=== PATIENT | male | born 1965 | race Caucasian/White ===

== ENCOUNTER 2017-04-25 14:00 | Inpatient (IN) | payer OTHER ==
[~2017-04-25] VITALS: Ht 182.9 cm; Wt 83.9 kg
--- NOTE | ~2017-04-25 | PN ---
Unit #: [id number] #: [id number] Patient: TOBIAS STATON [id number] [facility] [address] [place] [address] [id number] MR#: [id number] NAME: TOBIAS STATON ROOM: [facility] Age: 51 Sex: M Admission Date: 04/25/2017 : 1965 Attending Physician: Bernabe Suero M.D. Admitting Physician: Daniel Lindsey PROGRESS NOTES DATE 04/27/2017 DISCUSSION Mr. Staton continues to report depressed mood although his affect is flat. He is alert and fully oriented today. His memory and concentration are fair, and his thought processes are logical with no apparent response to internal stimuli although he does report some paranoia. He continues to have suicidal ideation with a plan to jump from a tall building. He is tolerating his medications with no adverse side effects. ASSESSMENT Bipolar disorder depressed. PLAN Continue current treatment plan. Dictated by... Bernabe Suero M.D. MRH/bzg TD: 04/28/2017 13:44 JOB #: [id number] ROJAS PROGRESS NOTES Page 1 of 1 X Bernabe Suero MD PROGRESS NOTE
--- NOTE | ~2017-04-25 | PN ---
Unit #: [id number] #: [id number] Patient: TOBIAS STATON [id number] [facility] [address] [place] [address] [id number] MR#: [id number] NAME: TOBIAS STATON ROOM: P251 Age: 51 Sex: M Admission Date: 04/25/2017 : 1965 Attending Physician: Bernabe Suero M.D. Admitting Physician: Daniel Lindsey PROGRESS NOTES DATE 04/28/2017 DISCUSSION Mr. Staton is somewhat irritable and states he needs "more Seroquel." He is generally cooperative on the unit and active in groups and activities although he claims to be confused but certainly does not appear so during my assessment. He appears alert and fully oriented. Memory and concentration were fair. His thought processes are nonpsychotic. He continues to report SI. ASSESSMENT Bipolar, depressed, alcohol dependence. PLAN Will increase Seroquel to 300 mg in the morning and 400 mg at bedtime and continue current precautions. Dictated by... Bernabe Suero M.D. RAMOS/reggie TD: 04/30/2017 01:12 JOB #: [id number] ROJAS PROGRESS NOTES Page 1 of 1 X Bernabe Suero MD PROGRESS NOTE
--- NOTE | ~2017-04-25 | HP ---
Unit #: [id number] #: [id number] Patient: TOBIAS STATON [id number] [place] [address] [id number] I MR#: [id number] NAME: TOBIAS STATON ROOM: P251 Age: 51 Sex: M Admission Date: 04/25/2017 : 1965 Attending Physician: Bernabe Suero M.D. Admitting Physician: Bernabe Suero M.D. HISTORY AND PHYSICAL History and physical completed on 04/26/2017. HISTORY OF PRESENT ILLNESS oTbias is a 51-year-old male, admitted on 04/25/[address] [place] [address] for psychosis and detox from alcohol. PAST MEDICAL HISTORY 1. Hypertension. 2. Chronic back pain. PAST SURGICAL HISTORY Umbilical hernia repair and tonsil and adenoidectomy. SOCIAL HISTORY He smokes half pack of cigarettes daily, binge alcohol use, denies any illegal drug use. He is currently and living in a snf. FAMILY HISTORY Noncontributory. REVIEW OF SYSTEMS CONSTITUTIONAL: No fever or chills. HEENT: Denies any sore throat, ear pain or runny nose. CARDIOVASCULAR: Denies chest pain, irregular heart rhythm or palpitations. CHEST: Denies shortness of breath or cough. No hemoptysis. GASTROINTESTINAL: Denies nausea, vomiting, diarrhea or chronic constipation. ENDOCRINE: Denies history of increased thirst or urination. No recent significant weight loss or gain. GENITOURINARY: Denies dysuria, frequency, or hematuria. SKIN: Denies any rashes. HEMATOLOGIC: Denies history of increased bleeding or bruising. MUSCULOSKELETAL: Denies any hot, swollen joints. No generalized muscle pain. NEUROLOGIC: Denies problems with vision or speech. No frequent, severe headaches. No numbness, tingling or weakness in any extremities. Denies loss of bladder or bowel control. CURRENT MEDICATIONS Seroquel and Wellbutrin. ALLERGIES No known drug allergies. Unit #: [id number] #: [id number] Patient: TOBIAS STATON PHYSICAL EXAMINATION GENERAL: Alert, oriented, no acute distress. VITAL SIGNS: Blood pressure 112/82, heart rate 82, temperature 97.9. HEIGHT: 6 feet 0 inches. WEIGHT: 185 pounds. SKIN: Warm and dry without rash or lesion. HEENT: Normocephalic. TMs not viewed. Oral and nasal passages clear. Conjunctivae clear. PERRLA. EOMs intact. NECK: Supple without lymphadenopathy or thyromegaly. HEART: Regular rate and rhythm without murmur. LUNGS: Clear. ABDOMEN: Soft, nontender. : Not done. EXTREMITIES: No evidence of cyanosis, clubbing or edema. Moves all without focal deficit. NEUROLOGICAL: Grossly within normal limits. Cranial Nerves: II: Visual amor are intact. III, IV AND : Extraocular movements are intact. Pupils are equal, round and reactive to light. V: Facial sensation is grossly normal. VII: Facial movements and expression are normal. VIII: Auditory acuity grossly intact. IX, X: Uvula is midline. Phonation is normal. XI: Patient shrugs shoulders and turns head normally. XII: Tongue protrudes in the midline. Sensory and Motor Function: Sensory and motor sensation is grossly normal. Motor: moves all extremities well. Coordination: Gait is normal. Deep Tendon Reflexes: Intact. IMPRESSION Psychiatric admission. RECOMMENDATIONS Psychiatric, per psychiatrist. MEDICAL No contraindications to participating in facility's activities. MEDICAL PROGNOSIS Good. MEDICAL CONDITION Stable. Dictated by... Brianda Harrell TD: 04/27/2017 11:18 JOB #: [id number] Unit #: [id number] #: [id number] Patient: TOBIAS STATON HISTORY AND PHYSICAL Page 1 of 1 X KRISTY DAILEY APRN X HISTORY AND PHYSICAL
--- NOTE | ~2017-04-25 | DS ---
Unit #: [id number] #: [id number] Patient: TOBIAS STATON [id number] [facility] [address] [place] [address] [id number] MR#: [id number] NAME: TOBIAS STATON ROOM: P251 Age: 51 Sex: M Admission Date: 04/25/2017 : 1965 Discharge Date: 04/29/2017 Attending Physician: Bernabe Suero M.D. DISCHARGE SUMMARY REASON FOR ADMISSION Tobias is a 51-year-old man, who reported that his mother 2 weeks ago. He was just discharged from the [facility] for alcohol detox and reports no support system. He had increasing depression with auditory hallucinations of his mother talking to him and suicidal ideation with a plan to jump from a tall building. He was unable to contract for safety and was admitted for stabilization. DIAGNOSTIC STUDIES LABORATORY RESULTS: Please see hospital chart. HOSPITAL COURSE The patient was admitted on suicide precautions. Seroquel was increased to 200 mg in the morning and 400 mg at bedtime, with a later increase to 300 mg in the morning and 400 mg at bedtime. Abilify was discontinued to avoid dual antipsychotic treatment. He participated appropriately in unit groups and activities. He continued to express suicidal ideation. It was revealed to us that the patient had been suspected of malingering some of his presentation at [facility], and he was noted to be doing well on our unit. At the time of discharge, he contracted for safety with no suicidal ideation, intent, or plan. He planned to follow up with [facility]. DISCHARGE DIAGNOSES AXIS I: Bipolar disorder, depressed and history of alcohol dependence. AXIS II: No diagnosis. AXIS III: Hypothyroidism, gastroesophageal reflux disease, and chronic pain. AXIS IV: AXIS V: DISCHARGE INSTRUCTIONS [facility] and primary care physician. DISCHARGE MEDICATIONS Wellbutrin XL 150 mg daily for depression, Depakote ER 500 mg in the morning and 1000 mg at bedtime for mood stability, and Seroquel 300 mg in the morning and 400 mg at bedtime for mood stability. Primary care medicines were Synthroid 88 mcg daily for hypothyroidism, Protonix 40 mg daily for GERD, Flexeril 10 mg b.i.d. for muscle spasms, Lyrica 200 mg t.i.d. for pain, vitamin B12 1000 mcg daily for vitamin B12 Unit #: [id number] #: [id number] Patient: TOBIAS STATON supplementation, and therapeutic vitamin 1 tablet daily for vitamin supplementation. CONDITION AT DISCHARGE Improved. PROGNOSIS Fair to good. DIET AND ACTIVITY Per primary care doctor. Dictated by... Daniel Lindsey/janie TD: 04/29/2017 18:44 JOB #: [id number] DISCHARGE SUMMARY Page 1 of 1 X Bernabe Suero MD X DISCHARGE SUMMARY
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
[2017-04-26 12:43] LABS: ALBUMIN SERUM 4.1 g/dL (3.5-5.0); BILIRUBIN,TOTAL 0.4 mg/dL (0.2-2.0); BUN/CREATININE RATIO 16.25; CALCIUM SERUM 9.4 mg/dL (8.4-10.2); CREATININE SERUM 0.8 mg/dL (0.6-1.4); GLOM FILT RATE Estimated 104.2 mL/min (>60); PROTEIN TOTAL SERUM 6.4 g/dL (6.0-8.3)
[2017-04-26 12:59] LABS: BASOPHIL# 0.1 X10e3 (0-0.3); BASOPHIL% 0.8 % (0-2.5); EOSINOPHIL# 0.1 X10e3 (0-0.7); EOSINOPHIL% 0.8 % (0.0-7.0); HEMATOCRIT 38.7 % (38.0-50.0); HEMOGLOBIN 13.1 gm/dL (13.0-16.0); LYMPHOCYTE# 2.6 X10e3 (1.0-3.5); LYMPHOCYTE% 30.9 % (17.0-45.0); MEAN CELL VOLUME 93.2 FL (83-96); MEAN CORPUSCULAR HEMOGLOBIN 31.6 PG (28-34); MEAN CORPUSCULAR HGB CONC 33.9 g/dL (30-36); MONOCYTE# 1.1 X10e3 (0-1.0); MONOCYTE% 12.9 % (3.0-12.0); NEUTROPHIL# 4.6 X10e3 (1.5-7.1); NEUTROPHIL% 54.6 % (40-75); PLATELET COUNT 272 X10e3 (140-420); RED BLOOD COUNT 4.15 X10e (3.90-5.60); WHITE BLOOD COUNT 8.5 X10e3 (4.0-10.5)
[2017-04-26 13:01] LABS: DIFF IND NO
[2017-04-27 12:41] LABS: URINE APPEARANCE CLEAR; URINE BILIRUBIN NEG (NEG); URINE BLOOD NEG (NEG); URINE COLOR YELLOW; URINE GLUCOSE NEG (NEG); URINE KETONE NEG (NEG); URINE LEUKOCYTE ESTERASE NEG (NEG); URINE NITRATE NEG (NEG); URINE PROTEIN NEG (NEG)
[2017-04-27 14:17] LABS: AMPHETAMINE NEG (NEG); BARBITURATES NEG (NEG); BENZODIAZEPINES POS (NEG); COCAINE NEG (NEG); MARIJUANA NEG (NEG); OPIATES NEG (NEG); TRICYCLIC ANTIDEPRESSANTS POS (NEG); U METHADONE NEG (NEG)
== END 2017-04-29 13:30 | disposition home or self-care (01) | DRG 885 ==
LOC: P2L 18:04
PROVIDERS: Psychiatry & Neurology Psychiatry
PROC: HZ2ZZZZ Detoxification Services for Substance Abuse Treatment (ICD-10-PCS; principal; 2017-04-25)
DX: F31.9 Bipolar disorder, unspecified (principal); R45.851 Suicidal ideations; E03.9 Hypothyroidism, unspecified; F10.20 Alcohol dependence, uncomplicated; K21.9 Gastro-esophageal reflux disease without esophagitis; G89.29 Other chronic pain; Z62.810 Personal history of physical and sexual abuse in childhood; Z81.8 Family history of other mental and behavioral disorders; Z81.1 Family history of alcohol abuse and dependence; F17.210 Nicotine dependence, cigarettes, uncomplicated
CPT/HCPCS: 80053; 80164; 80307; 81003; 85025